=== PATIENT | female | born 1950 | race Caucasian/White ===

== ENCOUNTER → 2017-01-22 | Day surgery (SDC) | payer MEDICARE ==
[~2017-01-22] MED LIST: BUPIVACAINE HCL PF 0.25% 30 ML VIAL ONE; BUPIVACAINE/EPINEPHRINE 0.25% 50 ML VIAL ONE; DICL75 PO; GLUCTAB PO; HYDR-3533 PO; LACTATED RINGER'S 1000 ML INJ 1,000 ML ONE; LEVO.1 PO; LISI-357 PO; ONDANSETRON HCL 4 MG/2 ML VIAL IV PUSH ONE; PROPOFOL 200 MG/20 ML AMP IV ONE; ZOCO40TA PO; ceFAZolin 2 GM PREMIX 50 ML ONE
--- NOTE | 2017-01-22 23:35 | MP ---
cc: FARIDA LIGHT DPM DATE OF SURGERY 01/22/17 PREOPERATIVE DIAGNOSIS 1. Left hallux abductovalgus with bunion deformity. 2. Hammertoe digits of two and three and metatarsalgia. POSTOPERATIVE DIAGNOSIS 1. Left hallux abductovalgus with bunion deformity. 2. Hammertoe digits of two and three and metatarsalgia. PROCEDURES PERFORMED 1. Left first MPJ osteotomy. 2. Proximal phalanx osteotomy of hallux also known as double osteotomy 3. Second digit DIPJ fusion 4. Third digit DIPJ fusion 5. Second digit metatarsal osteotomy and finally third metatarsal osteotomy. MATERIALS USED X1 3.0 headed screw, x1 2.5 headed screw, x2 2.0 headed screws and x1 3.0 headless screws. These were all [employer] titanium screws. SPECIMEN None ESTIMATED BLOOD LOSS Less than 39 mL COMPLICATIONS None ANESTHESIA General with LMA. 30 mL of 0.25% Marcaine plain was infiltrated TOURNIQUET TIME 81 minutes at a setting of 215 mmHg PLAN OF ACTIVITY PACU then DC home once stable per same-day surgery criteria JUSTIFICATION FOR PROCEDURE This is a pleasant 66 year old female who has worsening toe pain and the need for correction of the digits to allow for normal weightbearing and activity. She has exhausted taping, padding, strapping, anti-inflammatories was no resolve. The patient was educated on the surgery that is going to be performed. She may have swelling that may remain for 6-12 months, possibility of the need for more surgery at a later date to remove hardware. She understood there may be chronic pain and swelling in the areas of the surgery and there will be prolonged non-weightbearing. Medical clearance obtained per the PCP. No guarantees given or implied regarding the outcome. PROCEDURE IN DETAIL Under mild sedation, the patient was brought into the operating room, placed on the operating table in the supine position. Following the induction of general anesthesia, local anesthesia was obtained about the forefoot left utilizing standard block fashion. The left foot was then scrubbed, prepped and draped in the usual aseptic fashion. The foot was elevated, exsanguinated and the previously placed mid calf tourniquet was inflated to 215 mmHg. An incision was made over the dorsal aspect of the IPJ of the hallux which was slightly medial being careful to avoid the neurovascular bundle up to the mid shaft of the first metatarsal. Sharp and blunt dissection was carried down to periosteum. The first interspace was then dissected. A linear incision was made freeing up the fibular suspensory ligament. Next, an L-shaped capsulotomy was performed medially deep to the neurovascular bundle revealing a prominent dorsomedial eminence and only minimal to moderate arthritic findings of the first MPJ. Utilizing a McGlamry elevator plantar, lateral and central contractures of the first MPJ were then released at this time. The dorsal medial eminence was then transected utilizing power instrumentation. Next, an offset V osteotomy was performed with a longer dorsal arm of the first metatarsal head. The capital fragment was transposed laterally 5-6 mm and fixated utilizing proper AO technique utilizing a 3-0 and 2-5 [employer] screw. The proximal redundant shelf was then transected to smooth bony contour. Minimal hallux valgus still remained at this time. It was then indicated to perform an Calion proximal phalanx osteotomy. Further dissection took down subperiosteal of the proximal phalanx base. The proximal phalanx then received an osteotomy with an apex proximal lateral with an opening wedge distal medial. This wedge was then reciprocal planed and contoured to allow for correction of the hallux abductovalgus and medial rotation of the hallux. It was then fixated utilizing x1 3.0 headless screw from proximal medial to distal lateral. This was a bicortical purchase screw. There was compression across the osteotomy site. This was seen under fluoroscopy. The wound was then flushed with copious amounts of normal saline. Periosteum and capsular closure then took place utilizing Vicryl and deep dermis was closed utilizing Monocryl. Skin was closed utilizing nylon. The procedure that is to be dictated was the same procedure that was performed on the second digit, second metatarsal and the third digit and third metatarsal. An incision was made over the respective digit at the level of the PIPJ which became slight curvilinear at the level of the second MPJ. Sharp and blunt dissection was carried down to the extensor digitorum longus tendon in which the sling wing apparatus was then transected. A Z tendon lengthening incisional approach took place. Sharp and blunt dissection was carried down to the level of the MPJ. A dorsal capsulotomy was performed. The medial and lateral collateral ligaments were identified and severed freeing up contractures. A McGlamry elevator was then introduced deep into the MPJ freeing up the plantar plate. Next, a dorsal distal to plantar proximal metatarsal osteotomy was performed and the capital fragment was transposed proximally utilizing a [employer] elevator 2 mm then fixated utilizing a 2.0 cannulated screw both on the second and third metatarsals. Next, sharp and blunt dissection was carried down to the head of the proximal phalanx. The head of the proximal phalanx articular surface was then transected utilizing power instrumentation as well as the base of the middle phalanx. This was then prepared the proper fusion site. A K-wire was then placed through the middle phalanx, the distal phalanx and retrograded back across the proximal phalanx stopping just short of the MPJ. The second digit and the third digit were noted to have excellent alignment. The second and third digit were brought through range of motion. Any prominent dorsal shelf after the osteotomy was transected utilizing power instrumentation. The wounds were flushed with copious amounts of normal saline. X-rays showed excellent placement of the K-wires, reduction of the hallux abductovalgus and now reduction of the hammertoe deformity. The extensor digitorum longus tendon 2 and 3 were then repaired under loose physiologic tension utilizing Vicryl. Deep dermis was closed utilizing Monocryl. Skin was closed utilizing nylon. Upon relieving the tourniquet, there was a prompt hyperemic response to all digits without any delayed capillary fill time. A bulky bandage placed. The patient positioned within a controlled ankle motion boot. The patient was extubated uneventfully. She was recovered nicely in PACU. All vital signs stable. She will ice, elevate. I will see the patient within 24 hours. PARDEEP Ignacio /3:14 PM /10:55 PM
== END | disposition home or self-care (01) ==
LOC: ESDC 11:46
PROVIDERS: ATTEND Podiatrist Foot & Ankle Surgery
DX: M20.12 Hallux valgus (acquired), left foot (principal); M20.42 Other hammer toe(s) (acquired), left foot
CPT/HCPCS: 01480; 28285; 28299; 28308; 73620; 76000; C1713; J0690; J2405; J3010; J7120